=== PATIENT | female | born 1970 | race African-American/Black ===

== ENCOUNTER 2017-07-13 11:24 | Emergency (ER) | payer MEDICAID ==
[~2017-07-13] VITALS: Ht 162.6 cm; Wt 135.2 kg
[2017-07-13 11:47] VITALS: BP 130/87
[2017-07-13] MEDS ORDERED: IBUPROFEN800 MG ORAL (12:04)
[2017-07-13] MEDS ORDERED: VENTOLIN HFA18 GM INH (12:04)
[2017-07-13] MEDS ORDERED: FLONASE ALLERG9.9 ML NS (12:04)
--- NOTE | 2017-07-13 12:45 | Emergency Room Report ---
History of Present Illness General Chief Complaint: Flu Like Symptoms Source: Patient Present Illness HPI [id number] with 1 week of cough, myalgias, sore throat Denies chest pain, abd pain, vomiting Didnt get flu vaccine Denies urinary complaints Child also sick in ED Allergies: Coded Allergies: No Known Allergies (Unverified , 07/13/17) Patient History Past Medical History: none Past Surgical History: none Pertinent Family History: none Social History: Denies: smoking, alcohol use, drug use Last Menstrual Period: 05/2018 Now: No Immunizations: UTD Reviewed Nursing Documentation: PMH: Agreed, PSxH: Agreed Nursing Documentation-PMH Past Medical History: No History, Except For Hx Hypertension: Yes - high cholesterol Review of Systems All Other Systems: negative except mentioned in HPI Physical Exam Vital Signs Date Time Temp Pulse Resp B/P (MAP) Pulse Ox O2 Delivery O2 Flow Rate FiO2 07/13/17 11:47 98.2 90 16 130/87 94 Room Air Sp02 EP Interpretation: reviewed, normal General Appearance: normal inspection, well appearing, no apparent distress, alert, GCS 15, non-toxic Head: normocephalic, atraumatic Eyes: bilateral eye PERRL, bilateral eye EOMI ENT: normal ENT inspection, hearing grossly normal, normal pharynx, no angioedema, normal voice, TMs + canals normal, uvula midline, moist mucus membranes Neck: normal inspection, full range of motion, supple, thyroid normal, no meningismus, no bony tend Respiratory: normal inspection, lungs clear, normal breath sounds, no rhonchi, no respiratory distress, no retraction, no accessory muscle use, no wheezing, speaking full sentences Cardiovascular #1: regular rate, rhythm, no edema, no JVD, normal capillary refill Gastrointestinal: normal inspection, normal bowel sounds, non tender, soft, no mass, no peritonitis, non-distended, no guarding, no hernia, no pulsatile mass Genitourinary: no CVA tenderness Musculoskeletal: normal inspection, back normal, normal range of motion, no calf tenderness, pelvis stable, Boston's Sign negative Neurologic: normal inspection, alert, oriented x3, responsive, 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 Disposition: Patient is to be discharged to home. Prescriptions given are motrin, albuterol Patient is instructed to follow up with their primary care doctor within 5 days. Patient is instructed to follow up with *specialist within 3 days. Strict return precautions discussed with patient such as fever, chills, worsening/severe pain, nausea, vomiting, which may indicate severe illness. Patient verbalizes understanding and agrees with plan. Please note that this Emergency Department Report was dictated using [employer] driver technology software, occasionally this can lead to erroneous entry secondary to interpretation by the dictation equipment Last Vital Signs Date Time Temp Pulse Resp B/P (MAP) Pulse Ox O2 Delivery O2 Flow Rate FiO2 07/13/17 12:21 98.2 90 16 130/87 94 Room Air Status: improved Disposition: HOME, SELF-CARE Condition: Improved Scripts Ibuprofen* (MOTRIN*) 800 Mg Tablet 800 MG ORAL THREE TIMES A DAY for fever, body aches for 7 Days, #30 TAB 0 Refills Prov: KAMILLE QUINONES M.D. 07/13/17 Albuterol Sulfate (VENTOLIN HFA) 18 Gm Hfa.aer.ad 1 PUFF INH EVERY 6 HOURS for For Cough, #18 GM 0 Refills Prov: KAMILLE QUINONES M.D. 07/13/17 Fluticasone Propionate (Flonase Allergy Relief) 9.9 Ml [place].susp 9.9 ML NS BID for sinus congestion for 7 Days, #1 UNIT Prov: KAMILLE QUINONES M.D. 07/13/17 Referrals: NON PHYSICIAN (PCP) Patient Instructions: Acute Bronchitis, [id number] KAMILLE QUINONES M.D. Jul 13, 2017 12:44
== END 2017-07-13 12:20 | disposition home or self-care (01) ==
LOC: EMR 12:05
DX: J11.1 Influenza due to unidentified influenza virus with other respiratory manifestations (principal); I10 Essential (primary) hypertension
CPT/HCPCS: 99283